=== PATIENT | female | born 1945 | race African-American/Black ===

== ENCOUNTER 2020-06-11 10:31 | Emergency (ER) | payer MEDICAID ==
[~2020-06-11] VITALS: Ht 160 cm; Wt 84.3 kg
[~2020-06-11 10:31] MED LIST: APIX2.5T PO; ASCO500 PO; ASPI81TA39 PO; BACL10TA PO; BISA10SU11 PR; CALC-959 PO; CETI10CA PO; DOCU250C16 PO; ENOX40DI9 SQ; FURO20 PO; LACT1CAP70 PO; LOSA50TA37 PO; MOM30 PO; RISE35 PO; TRAM50TA4 PO
[2020-06-11] MEDS ORDERED: [UNRECOGNIZED DRUG - CODE] IV (10:41)
[2020-06-11] MEDS ORDERED: ATOR40TA28 PO (10:41)
[2020-06-11] MEDS ORDERED: CEFE2I IM (10:41)
[2020-06-11] MEDS ORDERED: METR500 PO (10:41)
[2020-06-11] MEDS ORDERED: VANCOMYCIN HCL IV (10:41)
[2020-06-11] MEDS ORDERED: LIDOCAINE 2%/EPI 1:200,000/PF 10 ML VIAL INJ ONE (11:15)
[2020-06-11] MEDS ORDERED: TRANEXAMIC ACID 1,000 MG/10 ML VIAL IVP ONE (11:30)
[2020-06-11] MEDS ORDERED: OXYMETAZOLINE HCL 0.05% 15 ML NASAL SPRAY NASAL ONE (11:30)
[2020-06-11 15:25] VITALS: BP 188/82
== END 2020-06-11 15:33 | disposition home or self-care (01) ==
LOC: EMS 10:34
DX: R04.0 Epistaxis (principal); I10 Essential (primary) hypertension
CPT/HCPCS: 30901; 99285; J3490